=== PATIENT | female | born 1955 | race Caucasian/White ===

== ENCOUNTER 2020-05-08 06:20 | Day surgery (SDC) | payer BC, MEDICARE ==
[~2020-05-08] VITALS: Ht 172.7 cm; Wt 142.5 kg
[~2020-05-08 06:20] MED LIST: ASPIR 8181 M1 PO; Diethylpropion75 MG PO; HYDACE5 PO; IBUP800 PO; LOSA50 PO; METAMUCIL POWD575 GM PO; MULVITA; MULVITA PO; Magnesium250 MG PO; OMEGA-3 FISH O1 EAC6 PO; PENVK500 PO; [UNRECOGNIZED DRUG - OTHER]
[2020-05-08] MEDS ORDERED: AMLO10 (06:41)
[2020-05-08] MEDS ORDERED: HYDCHL25 (06:42)
--- NOTE | 2020-05-08 06:55 | NUR ---
05/08/20 0655 Toshia Vazquez 1 TRY RIGHT HAND WENT THROUGH VALVE WELL SECOND HAND
== END 2020-05-08 08:13 | disposition home or self-care (01) ==
LOC: ORSCSDS 06:20
PROVIDERS: Surgery
PROC: 0DJD8ZZ Inspection of Lower Intestinal Tract, Via Natural or Artificial Opening Endoscopic (ICD-10-PCS; principal; 2020-05-08 07:30)
DX: Z12.11 Encounter for screening for malignant neoplasm of colon (principal); I10 Essential (primary) hypertension; G47.33 Obstructive sleep apnea (adult) (pediatric); K57.30 Diverticulosis of large intestine without perforation or abscess without bleeding; E66.01 Morbid (severe) obesity due to excess calories; Z68.42 Body mass index [BMI] 45.0-49.9, adult; Z79.82 Long term (current) use of aspirin; Z79.899 Other long term (current) drug therapy
CPT/HCPCS: J2250; J2704; J7120

== ENCOUNTER 2020-10-02 12:57 | Day surgery (SDC) | payer BC, MEDICARE ==
[~2020-10-02] VITALS: Ht 172.7 cm; Wt 139.5 kg
[~2020-10-02 12:57] MED LIST changes: +AMLO10; +HYDCHL25
== END 2020-10-02 15:33 | disposition home or self-care (01) ==
LOC: ORSCSDS 12:57
PROVIDERS: Podiatrist Foot & Ankle Surgery
PROC: 0LQN0ZZ Repair Right Lower Leg Tendon, Open Approach (ICD-10-PCS; principal; 2020-10-02 14:30)
DX: S86.001A Unspecified injury of right Achilles tendon, initial encounter (principal); I10 Essential (primary) hypertension; G47.33 Obstructive sleep apnea (adult) (pediatric); E66.01 Morbid (severe) obesity due to excess calories; Z68.42 Body mass index [BMI] 45.0-49.9, adult; Z79.82 Long term (current) use of aspirin; Z87.891 Personal history of nicotine dependence; Z79.899 Other long term (current) drug therapy
CPT/HCPCS: A9270; J0171; J0330; J0690; J1100; J1885; J2370; J2405; J2704; J3010; J7120

== ENCOUNTER 2023-02-13 10:47 | Emergency (ER) | payer OTHER ==
[~2023-02-13] VITALS: Ht 172.7 cm; Wt 135.6 kg
[2023-02-13 11:13] LABS: BASOPHILS ABSOLUTE AUTO 0.04 K/mm3 (0.00-0.23); BASOPHILS PERCENT AUTO 1 % (0-2); EOSINOPHILS ABSOLUTE AUTO 0.15 K/mm3 (0.00-0.68); EOSINOPHILS PERCENT AUTO 2 % (0-6); IMMATURE GRAN ABSOLUTE AUTO 0.04 K/mm3 (0.00-0.10); IMMATURE GRAN PERCENT AUTO 1 % (0-1); LYMPHOCYTES ABSOLUTE AUTO 1.72 K/mm3 (0.84-5.20); LYMPHOCYTES PERCENT AUTO 26 % (21-46); MONOCYTES ABSOLUTE AUTO 0.65 K/mm3 (0.16-1.47); MONOCYTES PERCENT AUTO 10 % (4-13); Mean Corpuscular HGB 30.3 pg (26.0-34.0); Mean Corpuscular HGB Conc 32.6 g/dL (31.5-36.5); Mean Corpuscular Volume 93 fL (80-100); Mean Platelet Volume 9.9 fL (9.1-12.4); NEUTROPHILS PERCENT AUTO 61 % (41-73); Platelet Count 326 K/mm3 (150-400); RDW Coefficient Variation 13.1 % (11.7-14.2); RDW Standard Deviation 44.7 fL (35.1-46.3); Red Blood Cell Count 4.62 M/mm3 (3.80-5.20)
[2023-02-13 11:36] LABS: Albumin, Blood 3.6 g/dL (3.4-5.0); Albumin/Globulin Ratio 1.1 (0.8-1.8); Bilirubin, Total 0.6 mg/dL (0.1-1.0); Bun/Creatinine Ratio 20.6 (12.0-20.0); Creatinine, Blood 0.87 mg/dL (0.40-1.00); Globulin, Blood 3.4 g/dL (2.2-4.0); Potassium, Blood 4.1 mmol/L (3.5-5.5)
[2023-02-13 14:56] LABS: Cholesterol 169 mg/dL (50-200); HDL Cholesterol 42 mg/dL (>39); LDL/HDL RATIO 2.5; Low Density Lipoprotein Chol 103 mg/dL (0-110); Triglycerides 119 mg/dL (30-160); Very Low Density Lipoprot Chol 23 mg/dL (6-32)
[2023-02-13] MEDS ORDERED: ELIQUIS5 M2 PO (15:04)
[2023-02-13] MEDS ORDERED: AMLO5 PO (15:04)
[2023-02-13 15:30] VITALS: BP 189/94
== END 2023-02-13 16:02 | disposition home or self-care (01) ==
LOC: ER 10:47
PROVIDERS: Family Medicine; Physician Assistant
DX: I10 Essential (primary) hypertension (principal); I48.91 Unspecified atrial fibrillation; Z79.899 Other long term (current) drug therapy; Z79.82 Long term (current) use of aspirin; Z87.891 Personal history of nicotine dependence
CPT/HCPCS: 80053; 80061; 83690; 85025; 93005; 93010; 93246; 99283-25; A9270

== ENCOUNTER 2023-05-15 05:44 | Day surgery (SDC) | payer OTHER ==
[2023-05-15] VITALS (8 sets, daily range): BP systolic 137–177; BP diastolic 70–84
[~2023-05-15] VITALS: Ht 172.7 cm; Wt 134.0 kg
[~2023-05-15 05:44] MED LIST changes: +AMLO10 PO; +AMLO5 PO; +ATOR20 PO; +ELIQUIS5 M2 PO; +HYDCHL25 PO; +Lopressor 25 mg25 MG PO; +VITAMIN B121000 MCG PO; +VITAMIN D310 MC1 PO
[2023-05-15] MEDS ORDERED: NS 1,000 ML IV ONE ×2 (07:29→07:32)
[2023-05-15] MEDS ORDERED: NS 250 ML IV ONE (07:29)
[2023-05-15] MEDS ORDERED: Verapamil HCL 2.5 MG/ML 2ML Injection ONE (07:29)
[2023-05-15] MEDS ORDERED: Heparin Sodium 1000 Units/ML 10ML MDV ONE (07:29)
[2023-05-15] MEDS ORDERED: Nitroglycerin 2 MG/20 ML BTL ONE (07:30)
[2023-05-15] MEDS ORDERED: Midazolam HCl 1MG / ML 2ML Vial ONE (07:31)
[2023-05-15] MEDS ORDERED: FentaNYL Citrate 50 MCG/ML 2 ML Injection ONE (07:31)
--- NOTE | 2023-05-15 08:51 | NUR ---
PT RETURNED TO RECOVERY ROOM IN RECLINER. RIGHT RADIAL TR BAND SITE SOFT NON-TENDER WITH NO HEMATOMA, NO PULSATILE BLEEDING AND WRIST BOARD IN PLACE. PT DENIES CHEST PAIN. PT EATING BREAKFAST. PT'S IN ROOM. CALL LIGHT IN REACH.
--- NOTE | 2023-05-15 08:58 | NUR ---
SPO2 PROBE HAS BEEN ON RIGHT INDEX FINGER; CAP REFILL < 3 SECONDS RIGHT HAND FINGER TIPS. NO CHANGES TO RIGHT RAD TR BAND SITE.
--- NOTE | 2023-05-15 09:51 | NUR ---
9 CC OF AIR REMOVED OUT OF NOW DEFLATED R TR BAND SITE OVER 15 MIN. R RAD SITE SOFT NON-TENDER WITH NO HEMATOMA, NO PULSATILE BLEEDING AND WRIST BOARD IN PLACE. DICHARGE INSTRUCTIONS REVIEWED ALL QUESTIONS ANSWERED.
--- NOTE | 2023-05-15 10:01 | NUR ---
NO CHANGES TO DEFLATED R RADIAL TR BAND SITE.
--- NOTE | 2023-05-15 10:34 | NUR ---
DEFLATED R TR BAND REMOVED AND POLYMEM PLACED OVER R RAD SITE WITH RIGHT WRIST BOARD IN PLACE; R RAD SITE SOFT NON-TENDER WITH NO HEMATOMA, NO PULSATILE BLEEDING. 20 G IV DISCONTINUED FROM R AC WITH INTACT CANNULA. PT ESCORTED OUT VIA WHEELCHAIR ESCORT.
== END 2023-05-15 10:35 | disposition home or self-care (01) ==
LOC: MHTC 05:44
DX: I48.91 Unspecified atrial fibrillation (principal); I25.10 Atherosclerotic heart disease of native coronary artery without angina pectoris; R53.83 Other fatigue; R06.00 Dyspnea, unspecified; I10 Essential (primary) hypertension; E78.5 Hyperlipidemia, unspecified; G47.30 Sleep apnea, unspecified; E66.9 Obesity, unspecified; Z79.01 Long term (current) use of anticoagulants; Z79.899 Other long term (current) drug therapy; Z87.891 Personal history of nicotine dependence
CPT/HCPCS: 76937; 93454; 99152; C1769; C1894; J1644; J2250; J3010; J7030; J7050; Q9967

== ENCOUNTER 2024-08-11 22:39 | Emergency (ER) | payer OTHER ==
[~2024-08-11] VITALS: Ht 172.7 cm; Wt 131.5 kg
[2024-08-11 23:03] LABS: BASOPHILS ABSOLUTE AUTO 0.05 K/mm3 (0.00-0.23); BASOPHILS PERCENT AUTO 1 % (0-2); EOSINOPHILS ABSOLUTE AUTO 0.23 K/mm3 (0.00-0.68); EOSINOPHILS PERCENT AUTO 2 % (0-6); Hematocrit 39.1 % (33.0-51.0); Hemoglobin 12.6 g/dL (11.5-16.0); IMMATURE GRAN ABSOLUTE AUTO 0.03 K/mm3 (0.00-0.10); IMMATURE GRAN PERCENT AUTO 0 % (0-1); LYMPHOCYTES ABSOLUTE AUTO 2.11 K/mm3 (0.84-5.20); LYMPHOCYTES PERCENT AUTO 21 % (21-46); MONOCYTES ABSOLUTE AUTO 0.99 K/mm3 (0.16-1.47); MONOCYTES PERCENT AUTO 10 % (4-13); Mean Corpuscular HGB 30.6 pg (26.0-34.0); Mean Corpuscular HGB Conc 32.2 g/dL (31.5-36.5); Mean Corpuscular Volume 95 fL (80-100); Mean Platelet Volume 9.9 fL (9.1-12.4); NEUTROPHILS ABSOLUTE AUTO 6.76 K/mm3 (1.96-9.15); NEUTROPHILS PERCENT AUTO 67 % (41-73); Platelet Count 277 K/mm3 (150-400); RDW Coefficient Variation 13.6 % (11.7-14.2); RDW Standard Deviation 47.4 fL (35.1-46.3); Red Blood Cell Count 4.12 M/mm3 (3.80-5.20); White Blood Cell Count 10.17 K/mm3 (4.00-11.30)
[2024-08-11] MEDS ORDERED: Aspirin 81 MG Chew PO ONE (23:20)
[2024-08-11] MEDS ORDERED: Nitroglycerin 0.4 MG SUBL SL PRN (23:20)
[2024-08-11 23:25] LABS: Albumin, Blood 3.9 g/dL (3.4-5.0); Albumin/Globulin Ratio 1.3 (0.8-1.8); Bilirubin, Total 0.9 mg/dL (0.1-1.0); Bun/Creatinine Ratio 28.5 (12.0-20.0); Calcium, Blood 9.5 mg/dL (8.5-10.1); Creatinine, Blood 0.81 mg/dL (0.40-1.00); Potassium, Blood 3.9 mmol/L (3.5-5.5); Total Protein, Blood 6.9 g/dL (6.4-8.2)
[2024-08-11] MEDS ORDERED: Losartan Potassium 50 MG Tab PO ONE (23:25)
[2024-08-11] MEDS ORDERED: Metoprolol Tartrate 50 MG Tab PO ONE (23:25)
[2024-08-11] MEDS ORDERED: Metoprolol Tartrate 25 MG Tab PO ONE (23:25)
[2024-08-12] MEDS ORDERED: Ondansetron HCl 2 MG / ML 2ML Vial IV ONE (00:35)
[2024-08-12] MEDS ORDERED: Morphine Sulfate 4 MG/1 ML Injection IV ONE (00:35)
[2024-08-12] MEDS ORDERED: ACET500 PO (02:28)
[2024-08-12 02:30] VITALS: BP 164/71
== END 2024-08-12 02:42 | disposition home or self-care (01) ==
LOC: ER 22:39
PROVIDERS: Student in an Organized Health Care Education/Training Program
DX: R07.89 Other chest pain (principal); I48.91 Unspecified atrial fibrillation; I10 Essential (primary) hypertension; I25.2 Old myocardial infarction; E78.5 Hyperlipidemia, unspecified; Z95.2 Presence of prosthetic heart valve; Z87.891 Personal history of nicotine dependence; Z79.01 Long term (current) use of anticoagulants; Z79.82 Long term (current) use of aspirin; Z79.899 Other long term (current) drug therapy
CPT/HCPCS: 71046; 80053; 83690; 84484; 85025; 93005; 93010; 96374; 96375; 99285-25; A9270; J2270; J2405